=== PATIENT | male | born 1965 | race Caucasian/White ===

== ENCOUNTER 2020-03-26 16:11 | Emergency (ER) | payer BC ==
[2020-03-26] MEDS ORDERED: Famotidine 20 MG/2 ML SDV IVPUSH ONE (16:14)
[2020-03-26] MEDS ORDERED: Sodium Chloride 0.9% 10 ML Syringe FLUSH PRN (16:14)
--- NOTE | 2020-03-26 16:14 | EDM.PDOC ---
ED HPI GENERAL MEDICAL PROBLEM - General Chief Complaint: Cardiovascular Problem Stated Complaint: HYPERTENSION Time Seen by Provider: 03/26/20 16:14 Source of Information: Reports: Patient, Family (). Denies: Old Records (No [facility] records available) History Limitations: Reports: No Limitations - History of Present Illness INITIAL COMMENTS - FREE TEXT/NARRATIVE: The patient was brought to the emergency room via private automobile by his for evaluation of a hypertensive crisis after initial evaluation by NIC Gillespie at the [facility] in [place]. The blood pressure in that clinic was 228/126 with confirmation by manual blood pressure check. No treatment or further evaluation were conducted in the clinic with the patient immediately referred to our emergency room for further evaluation. Note that the patient did refuse ambulance transfer as recommended. The patient had been seen by his dentist about 1 week ago with similar blood pressure readings and was told to have a repeat blood pressure check with his regular provider, although he does not have a normal regular provider or conduct any type of preventative healthcare. Therefore, blood pressure check at the above clinic today. The patient denies any chest pain/pressure, heart flutter, dizziness, orthostasis, orthopnea, diaphoresis, paresthesias, recent decreased exercise tolerance, or any other anginal-type symptoms. No recent history of abdominal pain, heartburn, nausea, diarrhea, melena, gross hematochezia, or any food intolerance, including fatty foods, etc.. The patient also denies any recent fever, cough, wheezing, dyspnea, etc.. No history of recent headaches, visual changes, diplopia, change in mental status, or other change in neurological status. Onset: Other (As above) Duration: Other (No pain) Context: Reports: Other (As above) Associated Symptoms: Denies: Confusion, Chest Pain, Cough, Diaphoresis, Fever/Chills, Headaches, Loss of Appetite, Malaise, Nausea/Vomiting, Rash, Seizure, Shortness of Breath, Syncope, Weakness Treatments FRAME REPAIRER: Reports: Other (see below) (None) - Related Data Allergies Allergy/AdvReac Type Severity Reaction Status Date / Time No Known Allergies Allergy Verified 03/26/20 16:12 Home Meds: Home Meds Ibuprofen 400 mg PO Q6HR PRN 03/26/20 [History] Past Medical History HEENT History: Reports: None. Denies: Allergic Rhinitis, Cataract, Glaucoma, Hard of Hearing, Impaired Vision, Macular Degeneration, Otitis Media, Retinal Detachment Cardiovascular History: Reports: None. Denies: Afib, Aneurysm, Arrhythmia, Blood Clots/VTE/DVT, CAD, Cardiomyopathy, Heart Murmur, High Cholesterol, Hypertension, RI, Syncope Respiratory History: Reports: None. Denies: Asthma, Bronchitis, Recurrent, COPD, Intubation, Difficult, Intubation, Previous, PE, Pneumonia, Recurrent, Pneumothorax, Sleep Apnea, TB Gastrointestinal History: Reports: Other (See Below). Denies: Bowel Obstruction, Celiac Disease, Cholelithiasis, Chronic Constipation, Chronic Diarrhea, Fatty Liver, Gastritis, GERD, GI Bleed, Inflammatory Bowel Disease, Irritable Bowel Syndrome, Jaundice, Pancreatitis Other Gastrointestinal History: Dysphagia with no previous work-up. Genitourinary History: Reports: None. Denies: Acute Renal Failure, BPH, Chronic Renal Insuffiency, Renal Calculus, Retention, Urinary, STD, Urinary Incontinence, UTI, Recurrent Musculoskeletal History: Reports: Other (See Below). Denies: Arthritis, Back Pain, Chronic, Fracture, Gout, Neck Pain, Chronic, Osteoarthritis, RA, SLE Other Musculoskeletal History: Right shoulder separation while playing football 1981 with no surgery required. Neurological History: Reports: Headaches, Chronic. Denies: Cerebral Aneurysms, Concussion, CVA, Head Trauma, Migraines, MS, Neuropathy, Peripheral, Parkinson's, Seizure, TIA, Vertigo Psychiatric History: Reports: None. Denies: Abuse, Victim of, ADD, ADHD, Addiction, Anxiety, Depression, Psych Hospitalization(s), PTSD, Suicide Attempt, Suicidal Ideation Endocrine/Metabolic History: Reports: Obesity/BMI 30+. Denies: Diabetes, Type I, Diabetes, Type II, Diabetes Mellitus, Type 3c, Hypothyroidism, IDDM Hematologic History: Reports: None. Denies: Anemia, Blood Transfusion(s), Iron Deficiency Immunologic History: Reports: None. Denies: AIDS, HIV, SLE Oncologic (Cancer) History: Reports: None. Denies: Basal Cell Carcinoma, Colon, Hodgkin's Lymphoma, Leukemia, Lymphoma, Malignant Melanoma, Non-Hodgkin's Lymphoma, Prostate, Squamous Cell Carcinoma Dermatologic History: Reports: None. Denies: Eczema, Psoriasis - Infectious Disease History Infectious Disease History: Reports: Chicken Pox, Measles, Mumps, Pertussis (Whooping Cough). Denies: C-Difficile, Meningitis, Mononucleosis, MRSA, Rheuma tic Fever, Rubella, Scarlet Fever, Shingles, TB, VRE - Past Surgical History Head Surgeries/Procedures: Reports: None HEENT Surgical History: Reports: Oral Surgery. Denies: Adenoidectomy, Cataract Surgery, Eye Surgery, Laser Surgery, LASIK, Myringotomy w Tube(s), Naso-Sinus Surgery, Tonsillectomy Other HEENT Surgeries/Procedures: Alexander teeth extraction x4 in about 2009. Cardiovascular Surgical History: Reports: None. Denies: Varicose Respiratory Surgical History: Reports: None. Denies: Thoracentesis GI Surgical History: Denies: Appendectomy, Cholecystectomy, Colonoscopy, EGD, Hernia, Abdominal, Hernia, Inguinal, Hernia Repair/Other, Polypectomy Male Surgical History: Reports: Circumcision, Other (See Below). Denies: Vasectomy Other Male Surgeries/Procedures: Circumcision as an Endocrine Surgical History: Reports: None. Denies: Thyroid Biopsy Neurological Surgical History: Reports: None. Denies: C-Spine, Discectomy, Lumbar Spine, Sacral Spine, Spinal Fusion, Thoracic Spine, Vertebroplasty Musculoskeletal Surgical History: Reports: None. Denies: Arthroscopic Procedure, Carpal Tunnel, Ganglion Cyst, Joint Replacement, ORIF, Shoulder Surgery Oncologic Surgical History: Reports: None Dermatological Surgical History: Reports: None - Past Imaging History Past Imaging History: Reports: None. Denies: Cardiac Echo, Stress Testing Social & Family History - Family History HEENT: Reports: Retinal Detachment, Other (See Below). Denies: Cataract, Macular Degeneration Other HEENT Family History: Mother with detached retina and secondary legal blindness. Cardiac: Reports: Bypass, CAD, Hypertension, RI, Stent, Other (See Below). Denies: Afib, Aneurysm, Arrhythmia, Blood Clots/VTE/DVT, Cardiomyopathy, Heart Failure, Heart Murmur, High Cholesterol, Pacemaker, PVD/COD Other Cardiac Family History: Father with fatal RI at about age 62 with father prior to planned CABG. Note PTCA/stent at age 54 with no RI at that time. Mother with fatal RI at age 59 complicated by severe hypokalemia and hypertension. Brother brother with RI his 50s with initial PTCA/stent and subsequent possible RI and CABG. Another brother with RI in his 50s with unknown type of subsequent procedures. Brother with hypertension. Respiratory: Reports: None. Denies: Asthma, COPD, PE, Pneumothorax, Sleep Apnea GI: Reports: Colon Polyps, Other (See Below). Denies: Celiac Disease, Cholelithiasis, GERD, GI bleed, Hepatitis, Inflammatory Bowel Disease, Irritable Bowel Syndrome, Pancreatitis, PUD Other GI Family History: Brothers x4 with colonic precancerous-? polyps. : Reports: None. Denies: Renal Calculus, Renal Disease/Insufficiency OBGYN: Reports: Recurrent Spontaneous , Other (See Below). Denies: Endometriosis Other OBGYN Family History: Sister with history of recurrent SAB. Musculoskeletal: Reports: None. Denies: Arthritis, Gout, Osteoarthritis, RA, SLE Neurological: Reports: Alzheimers Disease, Dementia, Other (See Below). Denies: CVA, Migraines, MS, Parkinson's, Seizure, TIA Other Neurological Family History: Paternal uncles x2 with organic brain syndrome. Psychiatric: Reports: Anxiety, Depression, Psych Hospitalization(s), Other (See Below). Denies: Abuse, Victim of, ADD, ADHD, Panic Attack, PTSD, Suicide Attempt Other Psychiatric Family History: Father with severe anxiety depression disorder requiring hospitalization after his . Endocrine/Metabolic: Reports: Diabetes, type II, IDDM, Other (See Below). Denies: Diabetes, Type I, Hypothyroidism Other Endocrine/Metabolic Family History: IDDM in in brother. Father with AODM. Hematologic: Reports: None. Denies: Anemia, SLE Immunologic: Reports: None. Denies: AIDS, HIV, SLE Dermatologic: Reports: None. Denies: Eczema, Psoriasis Oncologic: Reports: Skin, Other (See Below). Denies: Breast, Colon, Hodgkin's Lymphoma, Leukemia, Lymphoma, Non-Hodgkin's Lymphoma, Prostate Other Oncologic Family History: Sister and mother with unknown type of skin cancer. - Tobacco Use Smoking Status *Q: Current Every Day Smoker Tobacco Use Within Last Twelve Months: Smokeless Tobacco Years of Tobacco use: 35 Packs/Tins Daily: 0.4 Packs/Tins Daily Comment: Started chewing tobacco use at age 19 with average use of 1/3 can/day with previous occasional cigarette use. Used Tobacco, but Quit: No Smoking Cessation Information Provided To Patient: Yes Second Hand Smoke Exposure: No Second Hand Smoke Education Provided: No - Caffeine Use Caffeine Use: Reports: Coffee (1 cup/week), Soda (1 soda per week). Denies: Energy Drinks, Tea - Alcohol Use Alcohol Use History: Yes Days Per Week of Alcohol Use: 7 Number of Drinks Per Day: 6 Number of Drinks Per Day Comment: Usually beer about 6-10 at a time. No previous DWIs, problems with alcohol abuse, etc. Total Drinks Per Week: 42 Alcohol Use in Last Twelve Months: Yes Alcohol Use Frequency: Binges - Recreational Drug Use Recreational Drug Use: No Drug Use in Last 12 Months: No Recreational Drug Type: Denies: Amphetamines (Speed), Cocaine, Heroin, Inhalants (Glues, Solvents, Aerosols), LSD (Acid), Marijuana/Hashish, Methamphetamine, Morphine, Oxycodone - Living Situation & Occupation Living situation: Reports: (1989, 1 child), with Family Occupation: Employed ([id number]) ED ROS GENERAL - Review of Systems Review Of Systems: Comprehensive ROS is negative, except as noted in HPI. ED EXAM, GENERAL - Physical Exam Exam: See Below Exam Limited By: No Limitations General Appearance: Alert, WD/WN, No Apparent Distress Eye Exam: Bilateral Eye: EOMI, Normal Fundi, Normal Inspection (No nystagmus), PERRL Ears: Normal External Exam, Normal Canal, Hearing Grossly Normal, Normal TMs Nose: Normal Inspection, Normal Mucosa, No Blood Throat/Mouth: Normal Inspection, Normal Lips, Normal Teeth, Normal Gums, Normal Oropharynx, Normal Voice, No Airway Compromise. No: Dysphagia, Perioral Cyanosis Head: Atraumatic, Normocephalic. No: Facial Swelling, Facial Tenderness, Sinus Tenderness Neck: Normal Inspection, Supple, Non-Tender, Full Range of Motion. No: Carotid Bruit, Lymphadenopathy (L), Lymphadenopathy (R), Thyromegaly Respiratory/Chest: No Respiratory Distress, Lungs Clear, Normal Breath Sounds, No Accessory Muscle Use, Chest Non-Tender. No: Pleural Rub, Retractions Cardiovascular: Normal Peripheral Pulses, Regular Rate, Rhythm, No Edema, No Gallop, No JVD, No Murmur, No Rub. No: Gallop/S3, Gallop/S4, Friction Rub Peripheral Pulses: 2+: Radial (L), Radial (R), Dorsalis Pedis (L), Dorsalis Pedis (R) GI/Abdominal: Normal Bowel Sounds, Soft, Non-Tender, No Organomegaly, No Distention, No Abnormal Bruit, No Mass, Pelvis Stable. No: Guarding (Male) Exam: Deferred Rectal (Males) Exam: Deferred Back Exam: Normal Inspection, Full Range of Motion. No: CVA Tenderness (L), CVA Tenderness (R), Muscle Spasm Extremities: Normal Inspection, Normal Range of Motion, Non-Tender, No Pedal Edema, Normal Capillary Refill. No: Koki's Sign Neurological: Alert, Oriented, CN II-XII Intact, Normal Cognition, Normal Gait, Normal Reflexes (Negative Babinski's), No Motor/Sensory Deficits Psychiatric: Normal Affect, Normal Mood Skin Exam: Warm, Dry, Intact, Normal Color, No Rash. No: Diaphoretic, Ecchymosis, Petechiae, Wound/Incision Lymphatic: No Adenopathy EKG INTERPRETATION EKG Date: 03/26/20 Time: 16:54 Rhythm: NSR Rate (Beats/Min): 86 [place]: Normal (Extended left cardiac axis) P-Wave: Enlarged (Moderate biphasic P waves) QRS: Other (QRS interval of 0.14 seconds representing a complete bifascicular bundle branch block I am sure he) ST-T: Other (T wave inversions in leads II, III, aVF, and V6 with possible [address] elevations in leads I and aVL with left ventricular hypertrophy by voltage) QT: Normal VT/PQ Interval: 0.15 seconds with extreme poor R wave progression in the anterior leads Comparison: NA - No Prior EKG EKG Interpretation Comments: 1. Possible lateral STEMI with inferior ischemia 2. Left atrial enlargement 3. Left ventricular hypertrophy by voltage 4. Inferior wall cardiac ischemia Note repeat EKG at 16:54 hours using right-sided chest leads and repeat EKG using posterior lead placement both showed similar probable lateral ischemia Course - Vital Signs Last Recorded V/S: Last Vital Signs Temp 36.8 C 03/26/20 18:14 Pulse 73 03/26/20 18:14 Resp 16 03/26/20 18:14 BP 152/79 H 03/26/20 18:14 Pulse Ox 97 03/26/20 18:14 Vital Signs - 24 hr 03/26/20 03/26/20 03/26/20 16:15 16:30 16:43 Temperature [ 37.0 C Temporal] Pulse, 84 77 Peripheral [ Pulse Oximetry] Respiratory 16 20 Rate Blood Pressure 196/111 H Blood Pressure 240/121 H 196/111 H [Right Upper Arm] O2 Sat by Pulse 100 98 Oximetry 03/26/20 03/26/20 03/26/20 16:45 16:57 17:00 Temperature [ Temporal] Pulse, 89 89 Peripheral [ Pulse Oximetry] Respiratory 18 19 Rate Blood Pressure 183/111 H Blood Pressure 183/111 H 170/94 H [Right Upper Arm] O2 Sat by Pulse 94 L 94 L Oximetry 03/26/20 03/26/20 03/26/20 17:15 17:30 17:45 Temperature [ Temporal] Pulse, 74 73 74 Peripheral [ Pulse Oximetry] Respiratory 20 20 20 Rate Blood Pressure Blood Pressure 164/95 H 162/93 H 148/82 H [Right Upper Arm] O2 Sat by Pulse 94 L 96 98 Oximetry 03/26/20 03/26/20 17:59 18:14 Temperature [ 36.8 C Temporal] Pulse, 76 73 Peripheral [ Pulse Oximetry] Respiratory 16 16 Rate Blood Pressure Blood Pressure 139/93 H 152/79 H [Right Upper Arm] O2 Sat by Pulse 97 97 Oximetry - Orders/Labs/Meds Orders: Active Orders 24 hr Category Date Time Status Cardiac Monitoring [RC] . DIRECTED Care 03/26/20 16:15 Active EKG Documentation Completion [RC] ASDIRECTED Care 03/26/20 16:15 Active EKG Documentation Completion [RC] ASDIRECTED Care 03/26/20 16:54 Active Oxygen Therapy, ED [RC] PRN Care 03/26/20 16:15 Active Peripheral IV Care [RC] . DIRECTED Care 03/26/20 16:15 Active Pulse Oximetry [RC] CONTINUOUS Care 03/26/20 16:15 Active Up With Assistance [RC] PFP Care 03/26/20 16:15 Active Vital Signs [RC] PFP Care 03/26/20 16:15 Active Nothing per Oral Now Diet [DIET] Diet 03/26/20 Breakfast Active Chest 1V Frontal [CR] Stat Exams 03/26/20 16:15 Taken Heparin Sodium/0.45% NaCl [Heparin 25,000 Units in 1/2 Med 03/26/20 16:45 Active NS 500 ML] 500 ml IV TITRATE Nitroglycerin [Nitrostat] Med 03/26/20 16:54 Stat 0.4 mg SL ONETIME STA Nitroglycerin/D5W [Nitroglycerin 25 MG/D5W 250 ML] Med 03/26/20 16:45 Active 25 mg in 250 ml IV TITRATE Sodium Chloride 0.9% [Normal Saline] 1,000 ml Med 03/26/20 16:45 Active IV ASDIRECTED Sodium Chloride 0.9% [Normal Saline] 1,000 ml Med 03/26/20 16:45 Active IV ASDIRECTED Sodium Chloride 0.9% [Saline Flush] Med 03/26/20 16:14 Active 10 ml FLUSH ASDIRECTED PRN Obtain Past Medical Record [OM.PC] Urgent Oth 03/26/20 16:15 Active Peripheral IV Insertion Adult [OM.PC] Stat Oth 03/26/20 16:15 Ordered Resuscitation Status Stat Resus Stat 03/26/20 16:14 Ordered Medication Orders Heparin Sodium/Sodium Chloride (Heparin 25,000 Units In 1/2 Ns 500 Ml) 500 mls @ 22.317 mls/hr IV TITRATE HIEN; Protocol Last Admin: 03/26/20 16:59 Dose: 12 units/kg/hr, 22.317 mls/hr Documented by: SCOTT Cosigned by: ELVIRA Nitroglycerin/Dextrose (Nitroglycerin 25 Mg/D5w 250 Ml) 25 mg in 250 mls @ 6 mls/hr IV TITRATE HIEN Last Admin: 03/26/20 16:49 Dose: 10 mcg/min, 6 mls/hr Documented by: SCOTT Sodium Chloride (Normal Saline) 1,000 mls @ 30 mls/hr IV ASDIRECTED HIEN Last Admin: 03/26/20 18:14 Dose: 30 mls/hr Documented by: Infusion: 03/26/20 18:13 Dose: 30 mls/hr Documented by: Admin: 03/26/20 16:50 Dose: 30 mls/hr Documented by: SCOTT Sodium Chloride (Normal Saline) 1,000 mls @ 30 mls/hr IV ASDIRECTED HIEN Nitroglycerin (Nitrostat) 0.4 mg SL ONETIME STA Stop: 03/27/20 16:55 Last Admin: 03/26/20 16:57 Dose: 0.4 mg Documented by: SCOTT Sodium Chloride (Saline Flush) 10 ml FLUSH ASDIRECTED PRN PRN Reason: Keep Vein Open Labs: Laboratory Tests 03/26/20 03/26/20 03/26/20 Range/Units 16:24 16:24 16:24 WBC 7.4 (4.0-10.2) K/uL RBC 5.47 H (4.33-5.41) M/uL Hgb 17.5 H (13.1-16.8) g/dL Hct 48.5 (39.0-49.0) % MCV 88.7 (84.0-98.0) fL MCH 32.0 (28.2-33.3) pg MCHC 36.1 H (31.7-36.0) g/dL RDW 12.9 (11.2-14.1) % Plt Count 215 (150-350) K/uL Neut % (Auto) 59.4 (45.0-80.0) % Lymph % (Auto) 24.3 (10.0-50.0) % [place] % (Auto) 10.6 (2.0-14.0) % Eos % (Auto) 5.2 H (0.0-5.0) % Baso % (Auto) 0.5 (0.0-2.0) % Neut # (Auto) 4.37 (1.40-7.00) K/uL Lymph # (Auto) 1.79 (0.50-3.50) K/uL [place] # (Auto) 0.78 (0.00-1.00) K/uL Eos # (Auto) 0.38 (0.00-0.50) K/uL Baso # (Auto) 0.04 (0.00-0.20) K/uL PT 10.1 (9.5-12.0) SEC INR 1.0 APTT 26.7 (24.5-32.8) SEC D-Dimer, Quantitative 167 (0-400) ng/mL Sodium (136-145) mmol/L Potassium (3.5-5.1) mmol/L Chloride (98-107) mmol/L Carbon Dioxide (21.0-32.0) mmol/L BUN (7-18) mg/dL Creatinine (0.51-1.17) mg/dL Est Cr Clr Drug Dosing mL/min Estimated GFR (MDRD) mL/min Glucose (74-106) mg/dL Lactic Acid (0.4-2.0) mmol/L Uric Acid (2.6-7.2) mg/dL Calcium (8.5-10.1) mg/dL Magnesium (1.8-2.4) mg/dL Total Bilirubin (0.2-1.0) mg/dL AST (15-37) U/L ALT (12-78) U/L Alkaline Phosphatase (46-116) IU/L Creatine Kinase (26-308) U/L Creatine Kinase Index (0.0-2.5) % CK-MB (CK-2) (0.00-3.60) ng/mL Troponin I (0.000-0.056) ng/mL NT-Pro-B Natriuret Pep (0-125) pg/mL Total Protein (6.4-8.2) g/dL Albumin (3.4-5.0) g/dL TSH, Ultra Sensitive (0.358-3.740) mIU/mL Urine Opiates Screen (NEGATIVE) Ur Buprenorphine Scrn (NEGATIVE) Ur Oxycodone Screen (NEGATIVE) Ur EDDP (Meth Metab) (NEGATIVE) Ur Barbiturates Screen (NEGATIVE) Ur Tricyclics Screen (NEGATIVE) Ur Amphetamine Screen (NEGATIVE) U Methamphetamines Scrn (NEGATIVE) Urine MDMA Screen (NEGATIVE) U Benzodiazepines Scrn (NEGATIVE) U Cocaine Metab Screen (NEGATIVE) U Marijuana (THC) Screen (NEGATIVE) Ethyl Alcohol (0.000-0.080) g/dL 03/26/20 03/26/20 03/26/20 Range/Units 16:24 16:24 17:15 WBC (4.0-10.2) K/uL RBC (4.33-5.41) M/uL Hgb (13.1-16.8) g/dL Hct (39.0-49.0) % MCV (84.0-98.0) fL MCH (28.2-33.3) pg MCHC (31.7-36.0) g/dL RDW (11.2-14.1) % Plt Count (150-350) K/uL Neut % (Auto) (45.0-80.0) % Lymph % (Auto) (10.0-50.0) % [place] % (Auto) (2.0-14.0) % Eos % (Auto) (0.0-5.0) % Baso % (Auto) (0.0-2.0) % Neut # (Auto) (1.40-7.00) K/uL Lymph # (Auto) (0.50-3.50) K/uL [place] # (Auto) (0.00-1.00) K/uL Eos # (Auto) (0.00-0.50) K/uL Baso # (Auto) (0.00-0.20) K/uL PT (9.5-12.0) SEC INR APTT (24.5-32.8) SEC D-Dimer, Quantitative (0-400) ng/mL Sodium 139 (136-145) mmol/L Potassium 3.6 (3.5-5.1) mmol/L Chloride 99 (98-107) mmol/L Carbon Dioxide 27.4 (21.0-32.0) mmol/L BUN 11 (7-18) mg/dL Creatinine 0.73 (0.51-1.17) mg/dL Est Cr Clr Drug Dosing 118.06 mL/min Estimated GFR (MDRD) > 60 mL/min Glucose 127 H (74-106) mg/dL Lactic Acid 1.1 (0.4-2.0) mmol/L Uric Acid 5.1 (2.6-7.2) mg/dL Calcium 9.1 (8.5-10.1) mg/dL Magnesium 2.0 (1.8-2.4) mg/dL Total Bilirubin 1.0 (0.2-1.0) mg/dL AST 46 H (15-37) U/L ALT 97 H (12-78) U/L Alkaline Phosphatase 93 (46-116) IU/L Creatine Kinase 91 (26-308) U/L Creatine Kinase Index 2.9 H (0.0-2.5) % CK-MB (CK-2) 2.60 (0.00-3.60) ng/mL Troponin I 0.000 (0.000-0.056) ng/mL NT-Pro-B Natriuret Pep 46 (0-125) pg/mL Total Protein 8.4 H (6.4-8.2) g/dL Albumin 4.4 (3.4-5.0) g/dL TSH, Ultra Sensitive 3.278 (0.358-3.740) mIU/mL Urine Opiates Screen Negative (NEGATIVE) Ur Buprenorphine Scrn Negative (NEGATIVE) Ur Oxycodone Screen Negative (NEGATIVE) Ur EDDP (Meth Metab) Negative (NEGATIVE) Ur Barbiturates Screen Negative (NEGATIVE) Ur Tricyclics Screen Negative (NEGATIVE) Ur Amphetamine Screen Negative (NEGATIVE) U Methamphetamines Scrn Negative (NEGATIVE) Urine MDMA Screen Negative (NEGATIVE) U Benzodiazepines Scrn Negative (NEGATIVE) U Cocaine Metab Screen Negative (NEGATIVE) U Marijuana (THC) Screen Negative (NEGATIVE) Ethyl Alcohol 0.001 (0.000-0.080) g/dL Meds: Medications Generic Name Dose Route Start Last Admin Trade Name Freq PRN Reason Stop Dose Admin Heparin Sodium/Sodium Chloride 500 mls @ 22.317 mls/hr 03/26/20 16:45 03/26/20 16:59 Heparin 25,000 Units In 1/2 Ns 500 Ml IV 12 units/kg/hr TITRATE HIEN 22.317 mls/hr Administration Protocol 12 UNITS/KG/HR Nitroglycerin/Dextrose 25 mg in 250 mls @ 6 mls/hr 03/26/20 16:45 03/26/20 16:49 Nitroglycerin 25 Mg/D5w 250 Ml IV 10 mcg/min TITRATE HIEN 6 mls/hr Administration 10 MCG/MIN Sodium Chloride 1,000 mls @ 30 mls/hr 03/26/20 16:45 03/26/20 18:14 Normal Saline IV 30 mls/hr ASDIRECTED HIEN Administration Sodium Chloride 1,000 mls @ 30 mls/hr 03/26/20 16:45 Normal Saline IV ASDIRECTED HIEN Nitroglycerin 0.4 mg 03/26/20 16:54 03/26/20 16:57 Nitrostat SL 03/27/20 16:55 0.4 mg ONETIME STA Administration Sodium Chloride 10 ml 03/26/20 16:14 Saline Flush FLUSH ASDIRECTED PRN Keep Vein Open Discontinued Medications Generic Name Dose Route Start Last Admin Trade Name Freq PRN Reason Stop Dose Admin Aspirin Confirm 03/26/20 16:41 03/26/20 16:43 Aspirin Administered 03/26/20 16:42 324 mg Dose Administration 324 mg .ROUTE .STK-MED ONE Aspirin 324 mg 03/26/20 16:44 03/26/20 16:58 Aspirin CHEW 03/26/20 16:45 Not Given ONETIME ONE Famotidine 40 mg 03/26/20 16:14 03/26/20 16:33 Pepcid IVPUSH 03/26/20 16:15 40 mg ONETIME ONE Administration Heparin Sodium (Porcine) 4,000 units 03/26/20 16:41 03/26/20 16:46 Heparin Sodium IVPUSH 03/26/20 16:42 4,000 units ONETIME ONE Administration Labetalol HCl 10 mg 03/26/20 16:18 03/26/20 16:27 Normodyne IVPUSH 03/26/20 16:19 10 mg ONETIME ONE Administration Protocol Nitroglycerin 0.4 mg 03/26/20 16:41 03/26/20 16:43 Nitrostat SL 03/26/20 16:42 0.4 mg ONETIME ONE Administration Nitroglycerin Confirm 03/26/20 16:42 03/26/20 16:59 Nitrostat Administered 03/26/20 16:43 Not Given Dose 0.4 mg .ROUTE .STK-MED ONE Ticagrelor Confirm 03/26/20 16:41 03/26/20 16:43 Brilinta Administered 03/26/20 16:42 180 mg Dose Administration 180 mg PO .STK-MED ONE Ticagrelor 180 mg 03/26/20 16:44 03/26/20 16:58 Brilinta PO 03/26/20 16:45 Not Given ONETIME ONE - Radiology Interpretation Free Text/Narrative:: registered occupational therapist shows normal sinus rhythm with heart rate in the 70s to 80s with no ectopy or arrhythmia. Chest x-ray, portable, shows no evidence of cardiomegaly, CHF, pulmonary infiltrates, pneumothorax. Departure - Departure Time of Disposition: 18:25 Disposition: DC/Tfer to Acute Hospital 02 Reason for Transfer *Q: Other (Cardiology consultation as below) Condition: Good Clinical Impression: Tobacco abuse counseling, Hypertensive crisis, Coronary artery disease, Elevated LFTs, Polycythemia Instructions: Coronary Artery Disease, Male, Health Risks of Smoking, Hypertension, Adult, [id number], Smokeless Tobacco Information, Adult Referrals: Tyra Adams PA-C [Primary Care Provider] - Forms: ED Department Discharge, Interfacility Transfer MYRTLE Sepsis Event Note (ED) - Focused Exam Vital Signs: Vital Signs Temp Pulse Resp BP BP Pulse Ox 03/26/20 18:14 36.8 C 73 16 152/79 H 97 03/26/20 17:59 76 16 139/93 H 97 03/26/20 17:45 74 20 148/82 H 98 03/26/20 17:30 73 20 162/93 H 96 03/26/20 17:15 74 20 164/95 H 94 L 03/26/20 17:00 89 19 170/94 H 94 L 03/26/20 16:57 183/111 H 03/26/20 16:45 89 18 183/111 H 94 L 03/26/20 16:43 196/111 H 03/26/20 16:30 77 20 196/111 H 98 03/26/20 16:15 37.0 C 84 16 240/121 H 100 - Problem List & Annotations (1) Coronary artery disease SNOMED Code(s): 00630698 Code(s): I25.10 - ATHSCL HEART DISEASE OF [place] CORONARY ARTERY W/O ANG PCT RS Status: Acute Priority: High Current Visit: Yes Onset Date: 03/26/20 Annotation/Comment:: Note no previous preventative healthcare history. Based on my initial EKG evaluation I did call a STEMI with immediate initiation of chest pain protocol, IV nitroglycerin infusion, and IV heparin infusion, including initial IV bolus as per STEMI protocol. Patient also received 2 sublingual nitroglycerin tablets for cardiac prophylaxis and as better blood pressure control. High-dose IV Pepcid was given as GI prophylaxis. Initial telephone consultation at [address] Ramos, ski edge painter at [facility] in [place], who did not feel that this was a STEMI and asked for a second opinion with their qa manager, Dr. Escalante, with telephone consultation with him at [address] Escalante did review additional right wall and posterior wall EKGs and also does not feel that a STEMI is present. He is in agreement with our above treatment to this point, however. Subsequent telephone consultation at [address] Carroll, hospitalist at [facility] in [place], who does accept the patient for direct admission, with no further treatment recommendations given. Ambulance transfer with tube handler accompaniment. Vital signs significantly improved at time of transfer with no no chest pain throughout our emergency room care with stable physical exam at time of transfer. Note negative cardiac enzymes with artifactually elevated CK index secondary to low baseline CK with normal troponin I, CK-MB, d- dimer, and BNP. Qualifiers: Coronary Disease-Associated Artery/Lesion type: [place] artery [place] vs. transplanted heart: [place] heart Associated angina: without angina Qualified Code(s): I25.10 - Atherosclerotic heart disease of [place] coronary artery without angina pectoris (2) Hypertensive crisis SNOMED Code(s): 419928957 Code(s): I16.9 - HYPERTENSIVE CRISIS, UNSPECIFIED Status: Acute Priority: High Current Visit: Yes Onset Date: 03/26/20 Annotation/Comment:: Patient was aggressively treated with 10 mg of IV labetalol immediately upon his arrival to our facility. Note that after EKG was conducted chest pain protocol was initiated as above with patient completely chest pain-free both prior to and during our entire emergency room care. Nitroglycerin sublingual tablets x2 and IV nitroglycerin infusion were initiated with significantly improved blood pressures prior to patient transfer. Continue to observe closely by accepting providers. He denies any OTC cold preparations, significant caffeine use, illicit drug use, etc.. Drug screen was negative. (3) Elevated LFTs SNOMED Code(s): 652917034, 297369964 Code(s): R79.89 - OTHER SPECIFIED ABNORMAL FINDINGS OF BLOOD CHEMISTRY Status: Acute Priority: Medium Current Visit: Yes Onset Date: 03/26/20 Annotation/Comment:: LFTs elevation likely secondary fatty liver and/or current alcohol use. Heart healthy diet discussed. Continue to observe closely by accepting her regular providers. Alcohol level was normal. (4) Tobacco abuse counseling SNOMED Code(s): 101197569, 365867273, 083146204 Code(s): Z71.6 - TOBACCO ABUSE COUNSELING Status: Acute Current Visit: Yes (5) Polycythemia SNOMED Code(s): 707699618 Code(s): D75.1 - SECONDARY POLYCYTHEMIA Status: Acute Priority: Medium Current Visit: Yes Onset Date: 03/26/20 Annotation/Comment:: Observe for now - Problem List Review Problem List Initiated/Reviewed/Updated: Yes - My Orders Last 24 Hours: My Active Orders 03/26/20 Breakfast Nothing per Oral Now Diet [DIET] 03/26/20 16:14 Sodium Chloride 0.9% [Saline Flush] 10 ml FLUSH ASDIRECTED PRN Resuscitation Status Stat 03/26/20 16:15 Cardiac Monitoring [RC] . DIRECTED EKG Documentation Completion [RC] ASDIRECTED Oxygen Therapy, ED [RC] PRN Peripheral IV Care [RC] . DIRECTED Pulse Oximetry [RC] CONTINUOUS Up With Assistance [RC] PFP Vital Signs [RC] PFP Chest 1V Frontal [CR] Stat Obtain Past Medical Record [OM.PC] Urgent Peripheral IV Insertion Adult [OM.PC] Stat 03/26/20 16:45 Heparin Sodium/0.45% NaCl [Heparin 25,000 Units in 1/2 NS 500 ML] 500 ml IV TITRATE Nitroglycerin/D5W [Nitroglycerin 25 MG/D5W 250 ML] 25 mg in 250 ml IV TITRATE Sodium Chloride 0.9% [Normal Saline] 1,000 ml IV ASDIRECTED Sodium Chloride 0.9% [Normal Saline] 1,000 ml IV ASDIRECTED 03/26/20 16:54 EKG Documentation Completion [RC] ASDIRECTED Nitroglycerin [Nitrostat] 0.4 mg SL ONETIME STA - Assessment/Plan Last 24 Hours: My Active Orders 03/26/20 Breakfast Nothing per Oral Now Diet [DIET] 03/26/20 16:14 Sodium Chloride 0.9% [Saline Flush] 10 ml FLUSH ASDIRECTED PRN Resuscitation Status Stat 03/26/20 16:15 Cardiac Monitoring [RC] . DIRECTED EKG Documentation Completion [RC] ASDIRECTED Oxygen Therapy, ED [RC] PRN Peripheral IV Care [RC] . DIRECTED Pulse Oximetry [RC] CONTINUOUS Up With Assistance [RC] PFP Vital Signs [RC] PFP Chest 1V Frontal [CR] Stat Obtain Past Medical Record [OM.PC] Urgent Peripheral IV Insertion Adult [OM.PC] Stat 03/26/20 16:45 Heparin Sodium/0.45% NaCl [Heparin 25,000 Units in 1/2 NS 500 ML] 500 ml IV T ITRATE Nitroglycerin/D5W [Nitroglycerin 25 MG/D5W 250 ML] 25 mg in 250 ml IV TITRATE Sodium Chloride 0.9% [Normal Saline] 1,000 ml IV ASDIRECTED Sodium Chloride 0.9% [Normal Saline] 1,000 ml IV ASDIRECTED 03/26/20 16:54 EKG Documentation Completion [RC] ASDIRECTED Nitroglycerin [Nitrostat] 0.4 mg SL ONETIME STA Assessment:: As above Plan: As above. Extensive precautions were given to the patient, and son, who are in agreement with the treatment plan. Ambulance transfer to [place] with tube handler accompaniment as above.
[2020-03-26] MEDS ORDERED: Labetalol 20 MG/4 ML Syringe IVPUSH ONE (16:18)
[2020-03-26] MEDS ORDERED: Nitroglycerin 0.4 MG Tab.SL SL ONE (16:41)
[2020-03-26] MEDS ORDERED: Heparin Sodium 5,000 Units/ML Vial IVPUSH ONE (16:41)
[2020-03-26] MEDS ORDERED: Aspirin 81 MG Tab.Chew ONE (16:41)
[2020-03-26] MEDS ORDERED: Ticagrelor 90 MG Tab PO ONE ×2 (16:41→16:44)
[2020-03-26] MEDS ORDERED: Nitroglycerin 0.4 MG Tab.SL ONE (16:42)
[2020-03-26] MEDS ORDERED: Aspirin 81 MG Tab.Chew CHEW ONE (16:44)
[2020-03-26] MEDS ORDERED: Sodium Chloride 0.9% 1,000 ML IV SCH (16:45)
[2020-03-26] MEDS ORDERED: Nitroglycerin/D5W 25 MG/250 ML BOTTLE IV SCH (16:45)
[2020-03-26] MEDS ORDERED: Heparin Sodium/0.45% NaCl 500 ML IV SCH (16:45)
[2020-03-26 16:50] LABS: PTT,PARTIAL THROMBOPLSTIN TIME 26.7 SEC (24.5-32.8)
[2020-03-26] MEDS: Sodium Chloride 0.9% 1,000 ML IV SCH ×2 (16:50→18:14)
[2020-03-26] MEDS ORDERED: Nitroglycerin 0.4 MG Tab.SL SL STA (16:54)
[2020-03-26 16:59] LABS: CHLORIDE,CL 99 mmol/L (98-107); SODIUM,NA 139 mmol/L (136-145)
[2020-03-26 17:34] LABS: BARBITURATE SCREEN,URINE NEGATIVE (NEGATIVE); BENZODIAZEPINES SCREEN,URINE NEGATIVE (NEGATIVE); EDDP,URINE SCREEN NEGATIVE (NEGATIVE); TCA SCREEN,URINE NEGATIVE (NEGATIVE); THC SCREEN,URINE 50 NG/ML NEGATIVE (NEGATIVE)
== END 2020-03-26 18:25 ==
LOC: LL.ED 16:11
DX: I25.10 Atherosclerotic heart disease of native coronary artery without angina pectoris (principal); D75.1 Secondary polycythemia; R79.89 Other specified abnormal findings of blood chemistry; I16.9 Hypertensive crisis, unspecified; Z71.0 Person encountering health services to consult on behalf of another person; E66.9 Obesity, unspecified; Z68.29 Body mass index [BMI] 29.0-29.9, adult
CPT/HCPCS: 36415; 71045; 80053; 80305-QW; 80307; 82550; 82553; 83605; 83735; 83880; 84443; 84484; 84550; 85025; 85379; 85610; 85730; 93005; 96365; 96366; 96368; 96375; 96376; 99285-25; A9270-GY; J1644; J3490; J7030

== ENCOUNTER 2020-04-26 08:33 | Day surgery (SDC) | payer BC ==
[~2020-04-26 08:33] MED LIST: Midazolam 1 MG/ML 2 ML SDV ONE; Propofol 200 MG/20 ML SDV ONE; Sodium Chloride 0.9% 10 ML Syringe FLUSH PRN
[2020-04-26] MEDS: Lactated Ringers 1,000 ML IV SCH (09:26)
--- NOTE | 2020-04-26 09:56 | PCM.PN ---
- General Info Date of Service: 04/26/20 - Review of Systems Systems Review Comment:: 54-year-old male referred for his initial screening colonoscopy. He denies any history of recent colon problems. He states that his bowels have been working regularly and he has not seen any blood in his stools. He does note that he has multiple brothers who have had colon polyps. He denies a family history of colon cancer. Patient's recent history and physical is reviewed and no significant changes are noted. I have discussed the proposed colonoscopy with the patient. Risks such as but not limited to bleeding and GI injury reviewed. He agrees to proceed. - Patient Data Vitals - Most Recent: Last Vital Signs Temp 98.5 F 04/26/20 08:55 Pulse 57 L 04/26/20 08:55 Resp 20 04/26/20 08:55 BP 121/78 04/26/20 08:55 Pulse Ox 98 04/26/20 08:55 Weight - Most Recent: 90.718 kg Lab Results Last 24 Hours: Laboratory Results - last 24 hr 04/26/20 Range/Units 09:15 POC Glucose 109 (65-110) mg/dl Med Orders - Current: Current Medications Lactated Ringer's (Ringers, Lactated) 1,000 mls @ 125 mls/hr IV ASDIRECTED HIEN Last Admin: 04/26/20 09:26 Dose: 125 mls/hr Documented by: Sodium Chloride (Saline Flush) 10 ml FLUSH ASDIRECTED PRN PRN Reason: Keep Vein Open Discontinued Medications Midazolam HCl (Versed 1 Mg/Ml) Confirm Administered Dose 2 mg .ROUTE .STK-MED ONE Stop: 04/26/20 08:31 Propofol (Diprivan 20 Ml) Confirm Administered Dose 200 mg .ROUTE .STK-MED ONE Stop: 04/26/20 08:31 Sepsis Event Note - Focused Exam Vital Signs: Vital Signs Temp Pulse Resp BP Pulse Ox 04/26/20 08:55 98.5 F 57 L 20 121/78 98 - Problem List Review Problem List Initiated/Reviewed/Updated: Yes - Assessment Assessment:: Colon cancer screening Family history of colon polyps - Plan Plan:: Colonoscopy
[2020-04-26] MEDS ORDERED: Midazolam 1 MG/ML 2 ML SDV ONE (10:09)
[2020-04-26] MEDS ORDERED: Propofol 200 MG/20 ML SDV ONE ×2 (10:09→10:58)
--- NOTE | 2020-04-26 10:53 | PCM.OPNOTE ---
- General Post-Op/Procedure Note Date of Surgery/Procedure: 04/26/20 Operative Procedure(s): Colonoscopy with polypectomy Findings: Multiple polyps Moderate Sigmoid Diverticulosis Pre Op Diagnosis: Colon Cancer Screening Post-Op Diagnosis: Colon Polyps. Sigmoid Diverticulosis Anesthesia Technique: MAC Primary Surgeon: Oneil Gay Pathology: Colon Polyps EBL in mLs: 0 Complications: None Condition: Good
--- NOTE | 2020-04-26 12:39 | OR ---
Date of Procedure: 04/26/2020 PREOPERATIVE DIAGNOSIS: Colon cancer screening. POSTOPERATIVE DIAGNOSIS: Colon polyps, sigmoid diverticulosis. OPERATIONS PERFORMED: Colonoscopy with polypectomy. INDICATIONS FOR SURGERY: This 54-year-old male seen today for his initial screening colonoscopy. He does have a family history of colon polyps, although he is not having any GI symptoms at this time. FINDINGS: Multiple polyps were found during today's exam. There are 2 semipedunculated polyps in the ascending colon. These are 6 to 7 mm in size. There is a 6 mm sessile polyp in the distal transverse colon. The patient also has a moderate degree of diverticulosis in the sigmoid region, which does not appear to be acutely inflamed, or otherwise, complicated. The colon, otherwise, appears normal. DESCRIPTION OF PROCEDURE: The patient was taken to the operating room. He was given intravenous sedation, and with him in the left lateral decubitus position, digital rectal exam was performed showing no rectal masses. The Olympus colonoscope was inserted into the rectum. Retroflexed examination of the rectal canal was performed. The scope was then carefully advanced under direct visualization through the entire length of the colon until the cecum was reached. Cecal acquisition was confirmed by noting the normal internal cecal anatomy including the appendiceal orifice and the ileocecal valve. The light was also noted to transilluminate the abdominal wall in the right lower quadrant. After examining the cecum, the scope was slowly withdrawn, and in the ascending colon, the above-described two polyps were identified. These were both removed with a cautery snare and retrieved and submitted in a single specimen container. The scope was further withdrawn, sequentially re-examining the colonic segments, and in the distal transverse colon, the other polyp was identified, also removed with a cautery snare and retrieved. Examination was completed, and with no sign of any complication, the scope was removed, and the patient was taken from the operating room in satisfactory condition. ESTIMATED BLOOD LOSS: Zero. COMPLICATIONS: None. PROGNOSIS: Good. RM Gay MD /[id number]
== END 2020-04-26 11:52 | disposition home or self-care (01) ==
LOC: LL.SDS 08:33
PROVIDERS: ATTEND Surgery
DX: Z12.11 Encounter for screening for malignant neoplasm of colon (principal); D12.2 Benign neoplasm of ascending colon; D12.3 Benign neoplasm of transverse colon; K57.30 Diverticulosis of large intestine without perforation or abscess without bleeding; I10 Essential (primary) hypertension; E11.9 Type 2 diabetes mellitus without complications; E78.2 Mixed hyperlipidemia; D75.1 Secondary polycythemia; Z80.0 Family history of malignant neoplasm of digestive organs; Z79.899 Other long term (current) drug therapy
CPT/HCPCS: 00812; 82962; J2250; J2704; J7120